=== PATIENT | female | born 1940 | race Caucasian/White ===

== ENCOUNTER 2022-04-05 02:27 | Day surgery (SDC) | payer MEDICARE, OTHER, SELFPAY ==
[2022-03-22 14:13] VITALS: BMI 30.4
--- NOTE | 2022-04-05 10:32 | WPDANESEPPF ---
Anes - Initial Pre Proc Eval Procedure: Operation Date: 04/05/22 11:30 Proposed Procedures p Screening Colonoscopy - J Carlos Desouza MD Date/Time: 04/05/22 10:32 Surgeon: J Carlos Desouza MD Pre Op Diagnosis: neoplasm screening Patient Data Age: 82 Gender: F Height: 1.55 m Weight: 73 kg Allergies Allergy/AdvReac Type Severity Reaction Status Date / Time No Known Allergies Verified 03/22/22 14:11 Home Medications Medication Instructions Recorded Confirmed Type netarsudil 0.02 %-latanoprost 1 drop ophthalmic (eye) QPM 07/03/19 03/22/22 History 0.005 % eye drops acetaminophen 650 mg 650 mg PO Q12H 10/27/20 03/22/22 History tablet,extended release (Arthritis Pain Reliever) albuterol sulfate 90 mcg/actuation 1 inh inhalation Q4H 10/27/20 03/22/22 History aerosol inhaler (ProAir HFA) lisinopril 10 mg tablet 10 mg PO DAILY #90 tabs 07/24/21 03/22/22 Rx mecobalamin (vitamin B12) 5,000 2,500 mcg PO DAILY 09/29/21 03/22/22 History mcg disintegrating tablet escitalopram oxalate 10 mg tablet 10 mg PO DAILY #90 tabs 01/17/22 03/22/22 Rx cholecalciferol (vitamin D3) 50 50 mcg PO DAILY #90 tabs 03/11/22 03/22/22 Rx mcg (2,000 unit) tablet latanoprost 0.005 % eye drops 1 drp EACH EYE DAILY 03/22/22 03/22/22 History Patient hx anesthesia problems: none Family hx anesthesia problems: none Results Review: All pre-operative results and documents have been reviewed as part of the pre-operative evaluation. [facility] Past Medical History Medical History Arthritis Chronic neck pain Depression with anxiety Glaucoma Hypertension Migraine Osteoporosis Surgical History Surgical History History of hysterectomy (~1983) Family History Family History Sibling Family history of malignant neoplasm of breast in first degree relative Mother Family history of malignant neoplasm of ovary Other Family history of cardiovascular disease Family history of malignant neoplasm Family history of thyroid disease Social History Social History Smoking packs per day: 0.75 Smoking cigarettes per day: 15.0 Years smoked: 44 Smoking pack-years: 33.00 Smoking status: Current every day smoker Tobacco type: cigarettes Second hand tobacco smoke exposure: No Alcohol intake: current Alcohol use details: occasionnally Substance use: never Substance use type: does not use Living arrangements: with family Gender identity (if verbalized by the patient): Female Spiritual care concerns: No Agree to blood products: Yes Anes - Eval Final PreProcedure Day of Procedure 04/05/22 10:32 Patient weight: obese Heart: regular rate and rhythm Lungs: clear to auscultation Airway: Mallampati scale class II Neurological: alert and oriented Last oral intake: >/= 8 hours ASA classification: III Emergent: no Anesthetic plan: proceed Anesthesia type and monitoring: general GIVS and standard monitoring Results Review: All pre-operative results and documents have been reviewed as part of the pre-operative evaluation. Informed Consent: The patient's anesthetic plan and its attendant risks and benefits were discussed with the patient/family/POA. Questions were solicited and answers provided to the satisfaction of the patient/family/POA.
[2022-04-05 10:35] VITALS: BP 141/73; PULSE 76; RESP 16; TEMP 36.5; O2SAT 98; BMI 30.1
[2022-04-05] MEDS: LACTATED RINGERS 1,000 ML 150 ML IV CONT (10:38)
[2022-04-05 11:28] VITALS: BP 127/70; PULSE 72; RESP 21; O2SAT 95
[2022-04-05 11:38] VITALS: BP 144/77; PULSE 68; RESP 15; O2SAT 97
[2022-04-05 11:48] VITALS: BP 135/83; PULSE 69; RESP 23; O2SAT 98
--- NOTE | 2022-04-06 16:50 | PM.HPGS ---
History of Present Illness History of Present Illness Consent: Risks, benefits, and alternatives have been discussed and questions answered. Patient agrees to proceed with procedure. Chief complaint: neoplasm screening Narrative: Sofia Chandler is a 82 year old female referred for colon cancer screening. Review of Systems Review of Systems: All systems reviewed & are unremarkable except as noted in HPI and below PMFSH Past Medical History Medical History Arthritis Chronic neck pain Depression with anxiety Glaucoma Hypertension Migraine Osteoporosis Surgical History Surgical History History of hysterectomy (~1983) Family History Family History Sibling Family history of malignant neoplasm of breast in first degree relative Mother Family history of malignant neoplasm of ovary Other Family history of cardiovascular disease Family history of malignant neoplasm Family history of thyroid disease Social History Social History Smoking packs per day: 0.75 Smoking cigarettes per day: 15.0 Years smoked: 44 Smoking pack-years: 33.00 Smoking status: Current every day smoker Tobacco type: cigarettes Second hand tobacco smoke exposure: No Alcohol intake: current Alcohol use details: occasionnally Substance use: never Substance use type: does not use Living arrangements: with family Gender identity (if verbalized by the patient): Female Spiritual care concerns: No Agree to blood products: Yes Meds Home Medications and Allergies Home Medications Medication Instructions Recorded Confirmed Type netarsudil 0.02 %-latanoprost 1 drop ophthalmic (eye) QPM 07/03/19 03/22/22 History 0.005 % eye drops acetaminophen 650 mg 650 mg PO Q12H 10/27/20 03/22/22 History tablet,extended release (Arthritis Pain Reliever) albuterol sulfate 90 mcg/actuation 1 inh inhalation Q4H 10/27/20 03/22/22 History aerosol inhaler (ProAir HFA) lisinopril 10 mg tablet 10 mg PO DAILY #90 tabs 07/24/21 03/22/22 Rx mecobalamin (vitamin B12) 5,000 2,500 mcg PO DAILY 09/29/21 03/22/22 History mcg disintegrating tablet escitalopram oxalate 10 mg tablet 10 mg PO DAILY #90 tabs 01/17/22 03/22/22 Rx cholecalciferol (vitamin D3) 50 50 mcg PO DAILY #90 tabs 03/11/22 03/22/22 Rx mcg (2,000 unit) tablet latanoprost 0.005 % eye drops 1 drp EACH EYE DAILY 03/22/22 03/22/22 History Allergies Allergy/AdvReac Type Severity Reaction Status Date / Time No Known Allergies Verified 03/22/22 14:11 Exam Const: General: alert Orientation/consciousness: patient oriented x3 Resp: Auscultation: clear to auscultation bilaterally Cardio: Rhythm: regular rhythm GI: GI Palp: Yes Soft to palpation and No Tenderness to palpation present (GI) Neuro: General: patient oriented x3 Assessment and Plan Assessment and plan (1) Colon cancer screening: Code(s): Z12.11 - Encounter for screening for malignant neoplasm of colon Status: Acute Assessment and Plan: Colonoscopy with possible biopsy or polypectomy or cautery or injection of substances.
== END 2022-04-05 11:56 | disposition home or self-care (01) ==
PROVIDERS: PCP Family Medicine; Visit Provider Internal Medicine Gastroenterology
PROC: 0DJD8ZZ Inspection of Lower Intestinal Tract, Via Natural or Artificial Opening Endoscopic (ICD-10-PCS; CPT 45378; principal; 2022-04-05 11:30)
DX: Z12.11 Encounter for screening for malignant neoplasm of colon (principal); Z79.51 Long term (current) use of inhaled steroids; M19.90 Unspecified osteoarthritis, unspecified site; F41.9 Anxiety disorder, unspecified; F32.A Depression, unspecified; I10 Essential (primary) hypertension; M81.0 Age-related osteoporosis without current pathological fracture; F17.210 Nicotine dependence, cigarettes, uncomplicated; E66.9 Obesity, unspecified; Z68.30 Body mass index [BMI] 30.0-30.9, adult; Z90.710 Acquired absence of both cervix and uterus
CPT/HCPCS: G0121; J2001; J2704; J7120

== ENCOUNTER 2022-04-17 09:12 | Outpatient (CLI) | payer MEDICARE, OTHER, SELFPAY ==
--- NOTE | ~2022-04-17 | MM_ITS ---
EXAMINATION: MM screening tara BI w sharif HISTORY: Screening TECHNIQUE: Craniocaudal and mediolateral oblique 3-D tomosynthesis images were obtained and synthetic 2-D images were generated. CAD analysis was submitted and interpreted. COMPARISON: Comparison to multiple prior studies sequentially, with oldest reviewed study dated 11/2012. BREAST PARENCHYMAL COMPOSITION: There are scattered areas of fibroglandular density. FINDINGS: There is a developing asymmetry in the upper outer quadrant of the left breast, middle thir d. The right breast is stable without evidence for malignancy. IMPRESSION: 1. Developing left breast asymmetry in the upper outer quadrant. 2. Additional mammographic views and possible breast ultrasound are recommended. BI-RADS Category 0: Incomplete: Needs additional imaging evaluation. Reviewed, dictated and finalized at location A. IMPRESSION: 1. Developing left breast asymmetry in the upper outer quadrant. 2. Additional mammographic views and possible breast ultrasound are recommended . BI-RADS Category 0: Incomplete: Needs additional imaging evaluation.
== END 2022-04-17 09:13 | disposition home or self-care (01) ==
PROVIDERS: PCP Family Medicine; Visit Provider Family Medicine
DX: Z12.31 Encounter for screening mammogram for malignant neoplasm of breast (principal); R92.8 Other abnormal and inconclusive findings on diagnostic imaging of breast
CPT/HCPCS: 77063; 77067

== ENCOUNTER 2022-05-20 11:37 | Outpatient (CLI) | payer MEDICARE, OTHER, SELFPAY ==
--- NOTE | ~2022-05-20 | MMUS_ITS ---
EXAMINATION: MM diagnostic tara LT w sharif, US breast LT limited HISTORY: Possible left breast mass on screening mammogram TECHNIQUE: Additional 3-D tomosynthesis images of the breasts were performed and synthetic 2-D images were generated. CAD analysis was submitted and interpreted. High resolution limited left breast ultr asound was performed. COMPARISON: 04/17/2022, 09/28/2017, 04/22/2014 BREAST PARENCHYMAL COMPOSITION: There are scattered areas of fibroglandular density. FINDINGS: MAMMOGRAPHIC FINDINGS: There is a 9 mm round, obscured, low density mass in the middle/posterior third of the upper outer qu adrant of the breast at the 2:00 location 6 cm from the nipple. ULTRASOUND: There is a 9 mm x 6 mm cyst at the 1:00 location at the posterior depth 1 cm lateral to the nipple. IMPRESSION: 1. Left breast cyst corresponding to the mammographic finding in question. No mammographic or sonogra phic evidence of malignancy. 2. Recommend routine screening mammography in one year. BI-RADS Category 2: Benign finding(s). Reviewed, dictated and finalized at location A. [facility] [employer] IMPRESSION: 1. Left breast cyst corresponding to the mammographic finding in question. No m ammographic or sonographic evidence of malignancy. 2. Recommend routine screening mammography in one year. BI-RADS Category 2: Benign finding(s).
== END 2022-05-20 11:38 | disposition home or self-care (01) ==
PROVIDERS: PCP Family Medicine; Visit Provider Family Medicine
DX: R92.8 Other abnormal and inconclusive findings on diagnostic imaging of breast (principal); N60.02 Solitary cyst of left breast
CPT/HCPCS: 76642; 77061; 77065; G0279

== ENCOUNTER 2023-06-27 13:27 | Outpatient (CLI) | payer MEDICARE, OTHER, SELFPAY ==
[2023-06-27 18:44] LABS: Basophils Percent Auto 0.5 % (0.2-1.2); Hematocrit 39.3 % (37.0-47.0); Hemoglobin 12.8 g/dL (12.0-15.0); Immature Granulocyte Absolute 0.02 K/mm3 (0.00-0.031); Immature Granulocyte Percent A 0.3 % (0-0.5); Lymphocytes Absolute Auto 1.55 K/mm3 (0.9-3.2); Lymphocytes Percent Auto 19.7 % (18.3-44.2); Mean Corpuscular HGB Conc 32.6 g/dl (32-36); Mean Corpuscular Hemoglobin 30.5 pg (26-34); Mean Corpuscular Volume 93.6 fl (80-100); Monocytes Absolute Auto 0.8 K/mm3 (0.1-0.6); Monocytes Percent Auto 10.3 % (2.6-8.5); Neutrophils Absolute Auto 5.5 K/mm3 (1.3-6.7); Neutrophils Percent Auto 69.2 % (45.5-73.1); Platelet Count Result 296 k/mm3 (150-375); Red Cell Distribution Width 12.8 % (11.5-14.5); White Blood Count 7.9 K/mm3 (4.5-10.0)
[2023-06-27 20:53] LABS: Alanine Aminotransferase 20 U/L (6-35); Albumin Level 4.1 g/dL (3.5-5.1); Alkaline Phosphatase 55 U/L (38-126); Anion Gap 9 mmol/L (8-16); Aspartate Amino Transferase 30 U/L (14-36); Bilirubin,Total 0.4 mg/dL (0.2-1.3); Blood Urea Nitrogen 13 mg/dL (7-17); Calcium 9.7 mg/dL (8.4-10.2); Carbon Dioxide 24 mmol/L (22-30); Chloride 105 mmol/L (98-107); Cholesterol 173 mg/dL (0-200); Estimated Glomerular Filt Rate > 60; Glucose 95 mg/dL (65-110); HDL Direct 55 mg/dL; Potassium 4.1 mmol/L (3.4-5.0); Sodium 138 mmol/L (137-145); Triglycerides 159 mg/dL (<150)
[2023-06-27 21:06] LABS: LDL Cholesterol Direct 85 mg/dL
[2023-06-27 23:11] LABS: Folic Acid > 20.0 ng/mL (2.76->20)
[2023-07-01 00:45] LABS: Vitamin D 1,25 (OH)2 Total 50 pg/mL (18-72); Vitamin D2 1,25 (OH)2 <8 pg/mL; Vitamin D3 1,25 (OH)2 50 pg/mL
== END 2023-06-27 13:28 | disposition home or self-care (01) ==
LOC: ANHGOSHLAB 13:29
PROVIDERS: PCP Family Medicine; Visit Provider Nurse Practitioner Family
DX: E78.5 Hyperlipidemia, unspecified (principal); E55.9 Vitamin D deficiency, unspecified; I10 Essential (primary) hypertension; H40.9 Unspecified glaucoma; E53.8 Deficiency of other specified B group vitamins
CPT/HCPCS: 36415; 80053; 80061; 82607; 82652; 82746; 85025

== ENCOUNTER 2024-07-09 09:45 | Outpatient (CLI) | payer MEDICARE, OTHER, SELFPAY ==
[2024-07-09 13:45] LABS: Alanine Aminotransferase 15 U/L (6-35); Albumin Level 4.3 g/dL (3.5-5.1); Alkaline Phosphatase 62 U/L (38-126); Anion Gap 7 mmol/L (4-12); Aspartate Amino Transferase 39 U/L (14-36); Bilirubin,Total 0.7 mg/dL (0.2-1.3); Blood Urea Nitrogen 16 mg/dL (7-17); Calcium 9.6 mg/dL (8.4-10.2); Carbon Dioxide 28 mmol/L (22-30); Chloride 104 mmol/L (98-107); Cholesterol 195 mg/dL (0-200); Estimated Glomerular Filt Rate > 60; Glucose 90 mg/dL (65-110); HDL Direct 69 mg/dL; Potassium 4.4 mmol/L (3.4-5.0); Sodium 139 mmol/L (137-145); Triglycerides 130 mg/dL (<150)
[2024-07-09 13:57] LABS: LDL Cholesterol Direct 107 mg/dL; Vitamin D 25 Hydroxy 25.9 ng/mL
[2024-07-09 14:23] LABS: Hemoglobin A1C 5.3 % (<5.7)
== END 2024-07-09 09:46 | disposition home or self-care (01) ==
LOC: ANHGOSHLAB 09:46
PROVIDERS: PCP Family Medicine; Visit Provider Family Medicine
DX: E78.5 Hyperlipidemia, unspecified (principal); E55.9 Vitamin D deficiency, unspecified; R73.9 Hyperglycemia, unspecified; I10 Essential (primary) hypertension
CPT/HCPCS: 36415; 80053; 80061; 82306; 83036; 84443